=== PATIENT | female | born 1950 | race Caucasian/White ===

== ENCOUNTER → 2017-03-02 | Outpatient (CLI) | payer OTHER, MEDICARE ==
[~2017-03-02] MED LIST: AMLODIPINE PO; FAMO10CH; GLUCTAB7; MULTTAB PO; OMEGCAP2; VITAMIN B12; VITAMIN C; VITAMIN D; occuvite
[2017-03-02 12:27] LABS: BASO % 1.2 %; BASO ABS # 0.06 K/uL (0-0.2); COMPLETE YES; EOS % 0.8 %; HEMATOCRIT 44.5 % (37-47); IG% 0.4 %; LYMPH % 38.8 %; LYMPH ABS # 1.95 K/uL (1.2-3.4); MEAN CELL VOLUME 90.3 fL (80-100); MEAN CORPUSCULAR HEMOGLOBIN 30.4 pg (25-34); MEAN CORPUSCULAR HGB CONC 33.7 g/dl (32-36); MEAN PLATELET VOLUME 11.5 fL (7.4-10.4); MONO % 11.5 %; NEUT % 47.3 %; PLATELET COUNT 242 K/uL (130-400); RED BLOOD COUNT 4.93 M/uL (4.2-5.4); WHITE BLOOD COUNT 5.03 K/uL (4.8-10.8)
[2017-03-02 13:03] LABS: LYME DISEASE AB IGG NEG (NEG)
[2017-03-02 13:04] LABS: LYME DISEASE AB IGM NEG (NEG)
[2017-03-02 13:08] LABS: ALT/SGPT 90 U/L (12-78); AST/SGOT 62 U/L (15-37); BLOOD UREA NITROGEN 18 mg/dl (7-18); BUN/CREATININE RATIO 21.5 (10-20); CALCIUM 9.3 mg/dl (8.5-10.1); CARBON DIOXIDE 28 mmol/L (21-32); CHLORIDE 108 mmol/L (98-107); CREATININE 0.86 mg/dl (0.60-1.20); GLUCOSE 104 mg/dl (70-99); POTASSIUM 4.2 mmol/L (3.5-5.1); SODIUM 141 mmol/L (136-145)
[2017-03-02 13:18] LABS: ALB/GLOB RATIO 0.8 (0.9-2); ALKALINE PHOSPHATASE 109 U/L (45-117)
== END | disposition home or self-care (01) ==
LOC: C.LABPBG 09:53
PROVIDERS: ATTEND Physician Assistant
DX: R42 Dizziness and giddiness (principal); E55.9 Vitamin D deficiency, unspecified

== ENCOUNTER → 2017-10-12 | Outpatient (CLI) | payer OTHER, MEDICARE ==
--- NOTE | 2017-10-13 15:35 | MAMMOGRAPHY REPORT ---
BILATERAL DIGITAL SCREENING MAMMOGRAM TOMOSYNTHESIS WITH CAD: 10/12/2017 CLINICAL HISTORY: Routine screening. Patient has no complaints. TECHNIQUE: Breast tomosynthesis in addition to standard 2D mammography was performed. Current study was also evaluated with a Computer Aided Detection (CAD) system. COMPARISON: Comparison is made to exams dated: 08/06/2015 mammogram, 01/31/2015 mammogram, 07/31/2014 ma mmogram, 07/17/2014 mammogram, 07/04/2013 mammogram, and 12/13/2012 mammogram - [facility] enter. BREAST COMPOSITION: There are scattered areas of fibroglandular density in both breasts. FINDINGS: There is evidence of prior bilateral reduction mammoplasty. There are benign coarse calcif ications and benign oil cysts in the breasts. Stable nodular asymmetry in the medial right breast. N o suspicious mass, architectural distortion or cluster of microcalcifications is seen. IMPRESSION: ACR BI-RADS CATEGORY 1: NEGATIVE There is no mammographic evidence of malignancy. A 1 year screening mammogram is recommended. The pa tient will receive written notification of the results. Approximately 10% of breast cancers are not detected with mammography. A negative mammographic report should not delay biopsy if a clinically suggestive mass is present. Rebekah Cameron M.D. ay/:10/12/2017 16:33:57 Vice President Financial: Angeline CUELLO(Kiel)(Eduardo)(BD), [facility] letter sent: Normal 1/2 BI-RADS Code: ACR BI-RADS Category 1: Negative
== END | disposition home or self-care (01) ==
LOC: C.MAMM 13:29
PROVIDERS: ATTEND Family Medicine
DX: Z12.31 Encounter for screening mammogram for malignant neoplasm of breast (principal)

== ENCOUNTER 2018-02-25 18:14 | Emergency (ER) | payer OTHER, MEDICARE ==
[~2018-02-25] VITALS: Ht 162.6 cm; Wt 86.0 kg
[2018-02-25 18:22] VITALS: TEMP 36.9; Ht 162.6 cm; Wt 86.0 kg
--- NOTE | 2018-02-25 19:57 | DIAGNOSTIC IMAGING REPORT ---
CT OF THE HEAD WITHOUT CONTRAST CLINICAL HISTORY: Head injury. Facial contusions. COMPARISON STUDY: MRI of the brain April 17, 2011. CT DOSE: 846.80 mGy.cm TECHNIQUE: Helical axial images of the head were obtained without IV contrast. Automated exposure control was utilized for the study. A dose lowering technique was utilized adhering to the principles of ALARA. FINDINGS: Maxillofacial CT will be reported separately. No acute intracranial hemorrhage, midline shift or mass effect is present. Ventricular system is stable. Basilar cisterns are patent. There are no extra-axial collections. Johnson-white differentiation is maintained. There is no calvarial fracture. Deformity of the right lamina papyracea is better depicted on the maxillofacial CT. IMPRESSION: 1. No acute intracranial findings. 2. No calvarial fracture. 3. Deformity of the right lamina papyracea which is better depicted on the maxillofacial CT. Please see that report for further description. Electronically signed by: Jonh Bee M.D. 02/25/2018 7:56 PM Dictated Date/Time: 02/25/2018 7:52 PM
[2018-02-25] MEDS ORDERED: ALPH100C8 PO (20:02)
[2018-02-25] MEDS ORDERED: ASPI81TA28 PO (20:02)
[2018-02-25] MEDS ORDERED: HYZ/50125 PO (20:02)
[2018-02-25] MEDS ORDERED: CHOL1TAB42 PO (20:02)
[2018-02-25] MEDS ORDERED: ATOR-22 PO (20:02)
[2018-02-25] MEDS ORDERED: MULT1CAP53 PO (20:02)
[2018-02-25] MEDS ORDERED: CALC-51 PO (20:02)
[2018-02-25] MEDS ORDERED: COEN100C7 PO (20:02)
[2018-02-25] MEDS ORDERED: TURM1CAP4 PO (20:02)
[2018-02-25] MEDS ORDERED: RANI150T85 PO (20:02)
--- NOTE | 2018-02-25 20:05 | DIAGNOSTIC IMAGING REPORT ---
MAXILLOFACIAL CT WITHOUT CONTRAST CLINICAL HISTORY: Head injury, facial contusions. COMPARISON STUDY: MRI of the brain April 17, 2011. TECHNIQUE: A maxillofacial CT was performed without IV contrast. Coronal and sagittal reformats were viewed. A dose lowering technique was utilized adhering to the principles of ALARA. FINDINGS: Small right infraorbital contusion is noted. There is calcific material and mucosal thickening of the right maxillary sinus which is likely chronic. The globes are intact. There is no retrobulbar hematoma. The orbital floors are intact. There is a comminuted, mildly displaced fracture of the right lamina papyracea with a small amount of orbital fat herniating through the defect. Fractures age indeterminate. No additional fractures are identified on this examination. Alignment of the temporomandibular joints is anatomic. Slight deformity of the bilateral nasal bones is likely chronic. IMPRESSION: 1. Mildly displaced fracture of the right lamina papyracea with a small amount of orbital fat herniating through the defect. This fracture is age indeterminate and may be acute. 2. Right infraorbital contusion. Globes intact with no retrobulbar hematoma. 3. Slight deformity bilateral nasal bones which is likely chronic. 4. Calcific material and mucosal thickening within the right maxillary sinus which suggests chronic sinusitis. Electronically signed by: Jonh Bee M.D. 02/25/2018 8:04 PM Dictated Date/Time: 02/25/2018 7:56 PM
--- NOTE | 2018-02-25 20:10 | EMERGENCY ROOM VISIT NOTE ---
ED Visit Note First contact with patient: 18:32 The patient was seen and examined with Abril Colón PA-C. I agree with the history, physical and findings. Please see the note for disposition and details.
--- NOTE | 2018-02-25 20:37 | EMERGENCY ROOM VISIT NOTE ---
History First contact with patient: 18:32 Chief Complaint: REFERRED BY DOCTOR Stated Complaint: PATIENT FELL AND HIT FACE REFERRED BY DR TO GET CT History of Present Illness The patient is a 67 year old female who presents to the Emergency Room with complaints of a fall and facial injury which occurred 2 days ago. The patient states that she tripped over a mini trampoline and fell, striking her face on a metal bar. She had pain when the injury occurred but states the pain has improved since then. She does report that she has had some pressure in her sinuses and mucousy discharge from the nose. She has been applying ice to the area with some relief of pain. She takes a daily baby aspirin but no other anticoagulants. She states that she did not lose consciousness when the injury occurred. She denies headache, lightheadedness, vision changes, nausea or vomiting. She was seen by a provider at her primary care provider's office and sent here for further evaluation. Review of Systems A complete 10 point review of systems was reviewed with the patient with pertinent positives and negatives as per history of present illness. All else were negative. Past Medical/Surgical History Medical Problems: (1) Hyperlipidemia (2) Hypertension Social History Smoking Status: Never Smoker Housing Status: lives with family Current/Historical Medications Scheduled Alpha-Lipoic Acid (Thioctic Ac (Alpha Lipoic Acid), 1 TAB PO DAILY Aspirin (Aspirin Ec), 81 MG PO 2XWK Atorvastatin (Lipitor), 20 MG PO DAILY Calcium Carbonate-Vitamin D (Calcium), 1 TAB PO BID Cholecalciferol (Vitamin D), 5,000 UNITS PO DAILY Coenzyme Q10 (Ubidecarenone) (Coq10), 1 CAP PO DAILY Hctz/Losartan (Hyzaar 12.5MG/50MG), 1 TAB PO DAILY Multiple Vitamins W/ Minerals (Macular Health Formula), 1 CAP PO DAILY Ranitidine (Zantac), 150 MG PO BID Turmeric (Curcuma Longa) (Turmeric), 1 CAP PO DAILY Physical Exam Vital Signs Date Time Temp Pulse Resp B/P (MAP) Pulse Ox O2 Delivery O2 Flow Rate FiO2 02/25/18 21:17 74 18 141/78 98 Room Air 02/25/18 18:22 36.9 72 18 148/81 95 Room Air Physical Exam VITALS: Vitals are noted on the nurse's note and reviewed by myself. Vital signs stable. GENERAL: This is a 67-year-old female, in no acute distress, nondiaphoretic, well-developed well-nourished. SKIN: No lacerations. HEAD: Normocephalic atraumatic. EARS: External auditory canals clear, tympanic membranes pearly cannon without erythema or effusion bilaterally. No hemotympanum. EYES: There is infraorbital ecchymosis bilaterally, right greater than left. Pupils equal round and reactive to light and accommodation. Right eye does deviate laterally. No subconjunctival hemorrhage or hyphema. Extraocular movements intact and nonpainful. NOSE: Patent, turbinates without inflammation or discharge. NECK: Cervical spine is nontender. HEART: Regular rate and rhythm without murmurs gallops or rubs. LUNGS: Clear to auscultation bilaterally without wheezes, rales or rhonchi. MUSCULOSKELETAL: Strength 5/5 throughout. NEURO: Patient was alert and oriented to person place and time. Medical Decision & Procedures ER Provider Diagnostic Interpretation: CT OF THE HEAD WITHOUT CONTRAST IMPRESSION: 1. No acute intracranial findings. 2. No calvarial fracture. 3. Deformity of the right lamina papyracea which is better depicted on the maxillofacial CT. Please see that report for further description. MAXILLOFACIAL CT WITHOUT CONTRAST FINDINGS: Small right infraorbital contusion is noted. There is calcific material and mucosal thickening of the right maxillary sinus which is likely chronic. The globes are intact. There is no retrobulbar hematoma. The orbital floors are intact. There is a comminuted, mildly displaced fracture of the right lamina papyracea with a small amount of orbital fat herniating through the defect. Fractures age indeterminate. No additional fractures are identified on this examination. Alignment of the temporomandibular joints is anatomic. Slight deformity of the bilateral nasal bones is likely chronic. IMPRESSION: 1. Mildly displaced fracture of the right lamina papyracea with a small amount of orbital fat herniating through the defect. This fracture is age indeterminate and may be acute. 2. Right infraorbital contusion. Globes intact with no retrobulbar hematoma. 3. Slight deformity bilateral nasal bones which is likely chronic. 4. Calcific material and mucosal thickening within the right maxillary sinus which suggests chronic sinusitis. Medications Administered Medications (Trade) Dose Ordered Sig/Sumeet Route Start Time Stop Time Status Last Admin Dose Admin Amoxicillin/ Clavulanate Potassium (Augmentin 875MG Home Pack) 1 homepack UD ONCE PO 02/25/18 20:45 02/25/18 20:46 DC 02/25/18 21:13 1 HOMEPACK Medical Decision Differential diagnosis includes facial bone fracture, orbital floor fracture, nasal bone fracture, intracranial bleeding, concussion, among others. The patient was evaluated as above. CT of the head and facial bones were performed and read by radiology as above. Patient does have a fracture noted to the right lamina papyracea. The case was discussed with Dr. Dasilva of maxillofacial surgery; he recommends placing the patient on antibiotics and following up as needed. The patient was advised not to blow her nose. She will be placed on Augmentin. She verbalized understanding of my assessment and treatment plan and was discharged home in good condition. The patient was independently evaluated by Dr. Mathias, ED attending physician, who agreed with my assessment and treatment plan. Head Trauma GCS Score: 15 Medication Reconcilliation Current Medication List: was personally reviewed by me Blood Pressure Screening Patient's blood pressure: Elevated blood pressure Blood pressure disposition: Elevated BP felt to be situational Impression Primary Impression: Lamina papyracea fracture Departure Information Dispostion Home / Self-Care Condition GOOD Referrals Gale Mary DO (PCP) Khanh Dasilva D.M.D. Patient Instructions [facility] Additional Instructions You were treated today for a closed head injury and facial injury. Your CT scan did show a fracture of 1 of the bones around your eye. You were prescribed Augmentin to be taken twice daily as prescribed. This is an antibiotic. All antibiotics have the potential to cause diarrhea. Stop this medication and contact a medical provider if you were to develop any significant adverse side effects including: wheezing, shortness of breath, passing out, vomiting, or a diffuse rash. Always take antibiotics as directed and COMPLETE the ENTIRE course regardless of the improvement of your symptoms. For pain control, you can use the following [id number] medicines (if >12 yo): - Regular strength (325mg/tab) Tylenol (acetaminophen) 2 tabs every 4-6 hours as needed. Do not exceed 12 tablets in a 24 hour period. Avoid taking more than 4 grams (4000 mg) of Tylenol per day. This includes any other sources of acetaminophen you may take on a regular basis. - Regular strength (200 mg/tab) Advil (ibuprofen) 1-2 tabs every 4-6 hours as needed. Do not exceed a dose of 3200 mg per day. You may follow-up with maxillofacial surgery (Dr. Dasilva) for any increasing facial pain or double vision. Return to the emergency department if you have any worsening or new/concerning symptoms. Problem Qualifiers Primary Impression: Lamina papyracea fracture Encounter type: initial encounter Fracture type: closed Qualified Codes: S02.19XA - Other fracture of base of skull, initial encounter for closed fracture
[2018-02-25] MEDS ORDERED: AMOXICIL/CLAVU 875MG HOME PACK PO ONE (20:45)
[2018-02-25 21:17] VITALS: BP 141/78; PULSE 74; O2SAT 98
== END 2018-02-25 21:16 | disposition home or self-care (01) ==
LOC: C.EDB 18:16 → C.EDD 21:16
DX: S02.31XA Fracture of orbital floor, right side, initial encounter for closed fracture (principal); R40.2412 Glasgow coma scale score 13-15, at arrival to emergency department; W01.198A Fall on same level from slipping, tripping and stumbling with subsequent striking against other object, initial encounter; Z79.82 Long term (current) use of aspirin; I10 Essential (primary) hypertension; E78.5 Hyperlipidemia, unspecified

== ENCOUNTER 2019-10-02 19:41 | Observation (INO) ==
[2019-10-02 20:25] LABS: Basophils # (auto) 0.05 K/uL (0-0.2); Basophils % (auto) 0.7 %; Eosinophils # (auto) 0.05 K/uL (0-0.5); Eosinophils % (auto) 0.7 %; Hematocrit (blood only) 41.4 % (37-47); Hemoglobin 13.8 g/dL (12.0-16.0); Immature Granulocytes # (auto) 0.03 K/uL (0.00-0.02); Immature Granulocytes % (auto) 0.4 %; Lymphocytes % (auto) 35.3 %; Mean Corpuscular Hemoglobin 30.7 pg (25-34); Mean Corpuscular Hgb Conc 33.3 g/dL (32-36); Mean Platelet Volume 11.1 fL (7.4-10.4); Monocytes # (auto) 0.71 K/uL (0.11-0.59); Monocytes % (auto) 9.6 %; Neutrophils # (auto) 3.92 K/uL (1.4-6.5); Neutrophils % (auto) 53.3 %; Platelet Count 233 K/uL (130-400); RDW Standard Deviation 44.2 fL (36.4-46.3); White Blood Count 7.36 K/uL (4.8-10.8)
[2019-10-02 20:46] LABS: Albumin Globulin Ratio 0.9 (0.9-2); Albumin Level 3.4 gm/dl (3.4-5.0); BUN Creatinine Ratio 14.6 (10-20); Bilirubin,Total 0.4 mg/dl (0.2-1); Calcium 9.3 mg/dl (8.5-10.1); Creatinine Clr Calc Pharmacy 54.4 ml/min; Est GFR (African American) 64.1; Est GFR (Non-African American) 55.3; Globulin 3.9 gm/dl (2.5-4.0); Potassium 3.9 mmol/L (3.5-5.1); Total Protein 7.3 gm/dl (6.4-8.2)
[2019-10-02] MEDS ORDERED: ASPIRIN CHEW 324 MG PO STA (21:46)
--- NOTE | 2019-10-02 21:54 | Emergency Department Note ---
Entered by Ester Loyd acting as a scribe for History of Present Illness General Chief complaint: Dizziness Stated complaint: PRESSURE BACK OF HEAD,DIZZINESS,PRESSURE IN NECK Time Seen by Provider: 10/02/19 21:36 Source: patient Mode of arrival: ambulatory Limitations: no limitations History of Present Illness Onset (ago): day(s) 3 Location: head Radiation: non-radiation Pain Consistency: + constant Maximum Pain Intensity: 3 Current Pain Intensity: 3 Relieved By: + none Exacerbated By: + none Associated symptoms: + headaches; no chest pain and no shortness of breath Treatments prior to arrival: none The patient is a 69 year old female who presents to the ED with complaints of dizziness. She states she has experienced pressure in the back of her head and neck as well as dizziness during exertion, like when she goes for a walk. She thought her symptoms were from her Hydrochlorothiazide, so she went to see her doctor who did an EKG and referred her here to the ED as her EKG showed a 2nd degree block. She denies any chest pain or shortness of breath. Home Medications Home Medications Medication Instructions Recorded Confirmed Type atorvastatin 10 mg tablet 10 mg PO DAILY #30 tab 02/04/19 10/03/19 History calcium carb-Ca gluc 500 mg 1 tab PO BID tab 02/04/19 10/03/19 History calcium-magnesium ox-Mg gluc 250 mg tablet cholecalciferol (vitamin D3) 125 5,000 units PO DAILY tab 02/04/19 10/03/19 History mcg (5,000 unit) tablet coenzyme Q10 100 mg capsule 100 mg PO DAILY cap 02/04/19 10/03/19 History lutein 10 mg tablet 10 mg PO BID tab 02/04/19 10/03/19 History omega-3 fatty acids 1,000 mg 1,000 mg PO AMPM 02/04/19 10/03/19 History capsule omeprazole 20 mg tablet,delayed 20 mg PO DAILY 02/04/19 10/03/19 History release conjugated estrogens 0.625 mg/gram 0.3125 mg PV DAILY #30 gm 06/02/19 10/03/19 Rx vaginal cream hydrochlorothiazide 12.5 mg tablet 12.5 mg PO DAILY #90 tab 09/27/19 10/03/19 Rx losartan 25 mg tablet 25 mg PO DAILY #90 tab 09/27/19 10/03/19 Rx Allergies Allergy/AdvReac Type Severity Reaction Status Date / Time No Known Drug Allergies Allergy Verified 10/02/19 17:26 Past Med/Surg History Medical History Abdominal pain, epigastric Arthritis (Chronic) Breast pain (Resolved) Cellulitis (Resolved) Dermatofibroma (Chronic) Diverticulosis of colon (Chronic) Elevated liver enzymes (Chronic) Endometriosis (Resolved) FH: total abdominal hysterectomy and bilateral salpingo-oophorectomy GERD without esophagitis (Chronic) History of abnormal electrocardiography (Chronic) History of actinic keratosis (Chronic) History of carotid stenosis History of contact dermatitis (Resolved) History of diverticulitis of colon (Resolved) History of dysplastic nevus (Chronic) History of ecchymosis (Chronic) History of hypertrophy of breast (Chronic) History of melanoma in situ (Chronic) History of rosacea (Chronic) History of swelling of feet (Resolved) History of uterine leiomyoma (Resolved) History of vaginal delivery X3 History of vertigo (Chronic) Hypertrophy of breast Hyponatremia (Chronic) Left shoulder pain (Resolved) Macular degeneration (Chronic) Malignant melanoma of lower limb (Chronic) Need for hepatitis C screening test (Inactive) Osteopenia (Chronic) Paroxysmal supraventricular tachycardia (Resolved) Parvovirus B19 infection (Resolved) Urinary incontinence in female (Chronic) Uterine leiomyoma Vitamin D deficiency (Chronic) Vulvar ulceration (Resolved) Surgical History H/O cardiac catheterization History of dental surgery WISDOM TEETH History of excision of lesion EXCISION OF LESION,LEGS, MALIGNANT/ 2.1 TO 3CM. History of hemorrhoidectomy History of laparoscopy History of placement of ear tubes EAR PRESSURE EQUALIZATION TUBE ONSET; SEP 2015/ LEFT EAR. History of tonsillectomy History of total abdominal hysterectomy History of tubal ligation Family History Uncle Myocardial infarction Aunt Myocardial infarction Mother Myocardial infarction Brother Myocardial infarction Coronary arteriosclerosis Father Myocardial infarction Coronary arteriosclerosis Other FH: total abdominal hysterectomy and bilateral salpingo-oophorectomy Denies family history of Ovarian cancer Prostate cancer Breast cancer Colorectal cancer Social History Preferred Language: Micronesian Communication Ability: Effective Visual Impairment: No Limitations Hearing Ability: Normal Beliefs That Will Affect Care: None marital status: marital status details: THREE CHILDREN Current Living Situation: Spouse current occupational status: retired Feels Safe at Home: Yes Smoking Status: Never smoker Hx Alcohol Use: No Hx Substance Use: No Dental Care, Regularly: Yes Physical Activity Frequency: 3-4 Times per Week Seatbelt Use: always Sunscreen Use: Yes Review of Systems See HPI for pertinent positives & negatives. and A total of 10 systems reviewed and were otherwise negative Physical Exam Vital Signs Vital Signs - 24 hr 10/02/19 19:52 10/02/19 21:14 10/02/19 21:16 Temperature 36.6 C Temperature Source Oral Pulse Rate - Lying 66 Pulse Rate - Sitting 71 Pulse Rate - Standing 77 Pulse Rate 63 63 Respiratory Rate 20 18 Respiratory Effort / Characteristics Non-Labored Spontaneous Respiratory Depth Normal Blood Pressure - Lying 134/86 Blood Pressure - Sitting 155/87 H Blood Pressure- Standing 152/94 H Blood Pressure 153/81 H 152/94 H Blood Pressure Mean 105 130 Pulse Oximetry 95 Oxygen Delivery Method Room Air Room Air Sepsis Action Taken by Nursing No Action Required 10/02/19 21:17 10/02/19 21:20 10/02/19 21:30 Temperature Temperature Source Pulse Rate - Lying Pulse Rate - Sitting Pulse Rate - Standing Pulse Rate 65 59 L 68 Respiratory Rate 21 19 19 Respiratory Effort / Characteristics Respiratory Depth Blood Pressure - Lying Blood Pressure - Sitting Blood Pressure- Standing Blood Pressure Blood Pressure Mean Pulse Oximetry 95 Oxygen Delivery Method Room Air Sepsis Action Taken by Nursing 10/02/19 21:40 10/02/19 21:50 10/02/19 22:33 Temperature Temperature Source Pulse Rate - Lying Pulse Rate - Sitting Pulse Rate - Standing Pulse Rate 62 62 59 L Respiratory Rate 23 19 16 Respiratory Effort / Characteristics Respiratory Depth Blood Pressure - Lying Blood Pressure - Sitting Blood Pressure- Standing Blood Pressure 158/85 H Blood Pressure Mean 92 Pulse Oximetry Oxygen Delivery Method Sepsis Action Taken by Nursing GENERAL: Patient is awake alert in no acute distress patient is resting comfortably and showing no signs of anxiety EYES: The conjunctivae are clear. The pupils are round and reactive. EARS, NOSE, MOUTH AND THROAT: The nose is without any evidence of any deformity. Mucous membranes are moist. Tongue is midline. NECK: The neck is nontender and supple. RESPIRATORY: Normal respiratory effort is noted there is no evidence of wheezing rhonchi or rales CARDIOVASCULAR: Ectopy was noted to auscultation. No definite murmur was noted. GASTROINTESTINAL: The abdomen is soft. Abdomen is nontender. MUSCULOSKELETAL/EXTREMITIES: There is no evidence of gross deformity full range of motion is noted in the hips and shoulders. SKIN: There is no obvious evidence of any rash. There are no petechiae, pallor or cyanosis noted. NEUROLOGIC: Patient is awake alert and oriented x3 strength is symmetric patellar reflexes are 2+ bilaterally Course Course 214: The patient was evaluated in room C8 and a complete history and physical were performed. 2300: I reevaluated the patient. She is resting comfortably. I discussed her results and my recommendation she remain in the hospital for further evaluation and management and she is agreeable with the plan. 2345: I discussed the patients case with Dr. Jalloh, [facility] Hospitalist. The patient will be further evaluated. Administered Medications Discontinued Medications Aspirin (Aspirin) 324 mg PO NOW STA Stop: 10/02/19 21:47 Last Admin: 10/02/19 21:53 Dose: 324 mg Documented by: [id number] Medical Decision Making Differential Diagnosis Differential Diagnosis includes but is not limited to dehydration, stroke, anemia, hypoglycemia, hyponatremia, hypernatremia, urinary tract infection, pneumonia, bronchitis, sepsis, gastroenteritis, additional abdominal pathology, metabolic abnormalities and infections. Medical Records Attestation: I reviewed the patient's medical records. Home Medications Current Medication List: was personally reviewed by me Laboratory Data Attestation: I reviewed the patient's lab results. Result diagrams: 10/02/19 20:05 10/02/19 20:05 Lab Results 10/02/19 10/02/19 10/02/19 Range/Units 20:05 20:05 20:05 WBC 7.36 (4.8-10.8) K/uL RBC 4.50 (4.2-5.4) M/uL Hgb 13.8 (12.0-16.0) g/dL Hct 41.4 (37-47) % MCV 92.0 (80-100) fL MCH 30.7 (25-34) pg MCHC 33.3 (32-36) g/dL RDW Std Deviation 44.2 (36.4-46.3) fL RDW Coeff of Johnnie 13.0 (11.5-14.5) % Plt Count 233 (130-400) K/uL MPV 11.1 H (7.4-10.4) fL Immature Gran % (Auto) 0.4 % Neut % (Auto) 53.3 % Lymph % (Auto) 35.3 % [place] % (Auto) 9.6 % Eos % (Auto) 0.7 % Baso % (Auto) 0.7 % Immature Gran # (Auto) 0.03 H (0.00-0.02) K/uL Neut # (Auto) 3.92 (1.4-6.5) K/uL Lymph # (Auto) 2.60 (1.2-3.4) K/uL [place] # (Auto) 0.71 H (0.11-0.59) K/uL Eos # (Auto) 0.05 (0-0.5) K/uL Baso # (Auto) 0.05 (0-0.2) K/uL Sodium 139 (136-145) mmol/L Potassium 3.9 (3.5-5.1) mmol/L Chloride 108 H (98-107) mmol/L Carbon Dioxide 26 (21-32) mmol/L Anion Gap 5.0 (3-11) BUN 15 (7-18) mg/dl Creatinine 1.02 (0.6-1.2) mg/dl Est Cr Clr Drug Dosing 54.4 ml/min Est GFR ( Amer) 64.1 Est GFR (Non-Af Amer) 55.3 BUN/Creatinine Ratio 14.6 (10-20) Glucose 132 H (70-99) mg/dl Calcium 9.3 (8.5-10.1) mg/dl Total Bilirubin 0.4 (0.2-1) mg/dl AST 32 (15-37) U/L ALT 44 (12-78) U/L Alkaline Phosphatase 88 (45-117) U/L Troponin I < 0.015 (0-0.045) ng/ml Total Protein 7.3 (6.4-8.2) gm/dl Albumin 3.4 (3.4-5.0) gm/dl Globulin 3.9 (2.5-4.0) gm/dl Albumin/Globulin Ratio 0.9 (0.9-2) Specimen Hemolysis Urine Color Urine Appearance (Clear) Urine pH (4.5-7.5) Ur Specific [place] (1.000-1.030) Urine Protein (Negative) Urine Glucose (UA) (Negative) Urine Ketones (Negative) Urine Blood (Negative) Urine Nitrite (Negative) Urine Bilirubin (Negative) Urine Urobilinogen (Negative) Ur Leukocyte Esterase (Negative) Lyme Disease IgG Ab (Negative) Lyme Disease IgM Ab (Negative) 10/02/19 10/02/19 Range/Units 20:05 22:00 WBC (4.8-10.8) K/uL RBC (4.2-5.4) M/uL Hgb (12.0-16.0) g/dL Hct (37-47) % MCV (80-100) fL MCH (25-34) pg MCHC (32-36) g/dL RDW Std Deviation (36.4-46.3) fL RDW Coeff of Johnnie (11.5-14.5) % Plt Count (130-400) K/uL MPV (7.4-10.4) fL Immature Gran % (Auto) % Neut % (Auto) % Lymph % (Auto) % [place] % (Auto) % Eos % (Auto) % Baso % (Auto) % Immature Gran # (Auto) (0.00-0.02) K/uL Neut # (Auto) (1.4-6.5) K/uL Lymph # (Auto) (1.2-3.4) K/uL [place] # (Auto) (0.11-0.59) K/uL Eos # (Auto) (0-0.5) K/uL Baso # (Auto) (0-0.2) K/uL Sodium (136-145) mmol/L Potassium (3.5-5.1) mmol/L Chloride (98-107) mmol/L Carbon Dioxide (21-32) mmol/L Anion Gap (3-11) BUN (7-18) mg/dl Creatinine (0.6-1.2) mg/dl Est Cr Clr Drug Dosing ml/min Est GFR ( Amer) Est GFR (Non-Af Amer) BUN/Creatinine Ratio (10-20) Glucose (70-99) mg/dl Calcium (8.5-10.1) mg/dl Total Bilirubin (0.2-1) mg/dl AST (15-37) U/L ALT (12-78) U/L Alkaline Phosphatase (45-117) U/L Troponin I (0-0.045) ng/ml Total Protein (6.4-8.2) gm/dl Albumin (3.4-5.0) gm/dl Globulin (2.5-4.0) gm/dl Albumin/Globulin Ratio (0.9-2) Specimen Hemolysis Urine Color Yellow Urine Appearance Clear (Clear) Urine pH 6.0 (4.5-7.5) Ur Specific [place] 1.016 (1.000-1.030) Urine Protein Negative (Negative) Urine Glucose (UA) Negative (Negative) Urine Ketones Negative (Negative) Urine Blood Negative (Negative) Urine Nitrite Negative (Negative) Urine Bilirubin Negative (Negative) Urine Urobilinogen Negative (Negative) Ur Leukocyte Esterase Negative (Negative) Lyme Disease IgG Ab Negative (Negative) Lyme Disease IgM Ab Negative (Negative) Imaging Data Radiologist's Impression: Radiology results as stated below per my review and the radiologist's interpretation: XR chest 1V portable CLINICAL HISTORY: palpitations COMPARISON STUDY: Chest radiograph January 02, 2013. FINDINGS: Lung volumes are normal. Lungs are clear. There is no pneumothorax or pleural effusion. Mild to moderate cardiomegaly is noted. Mediastinal contours are normal. There is no evidence for pulmonary edema. IMPRESSION: No acute cardiopulmonary findings. Mild to moderate cardiomegaly. ACT 112: Negative or not required by law. Electronically signed by: Jonh Bee M.D. 10/02/2019 10:02 PM ECG Data Attestation: I personally reviewed and interpreted this ECG as follows: Indication: + other (dizziness) Rate (beats per minute): 77 Rhythm: + sinus rhythm ECG Findings: + PVCs and + Other (No acute ST segments) Comparison ECG Date: from (12/23/2012) Change: no significant change Blood Pressure Blood Pressure Findings: Elevated blood pressure Blood Pressure Disposition: further management by hospitalist MONICO Das The patient is a 69-year-old female who presented to the emergency department at the request of her primary care physician. The patient has been having dizziness symptoms. She also started having some degree of chest discomfort. She has no chest discomfort at this time but when she went to see her primary care physician she was noted to have an abnormal EKG with the possibility of a second-degree AV block. I was unable to obtain the EKG that the patient had ear lier today but at this time she does not have a block rather she has sinus rhythm with frequent PVCs. I discussed the patient's laboratory and radiographic studies with her. She was reevaluated multiple times. At this time she has no ongoing symptoms but she is scheduled for a cardiac work-up. Leeann collins the patient's findings earlier in the day it is possible that her symptoms could be related to dysrhythmia. For this reason I discussed her case with the on-call [facility] hospitalist group. They have agreed to evaluate the patient in the emergency department for further management disposition. Impression & Plan Neck pain, Chest pain, Abnormal EKG Discharge Plan Visit Data *Final* Discharge Date/Time: 10/03/19 01:06 Chief Complaint: Dizziness Stated Complaint: PRESSURE BACK OF HEAD,DIZZINESS,PRESSURE IN NECK ED Provider: Carlin Gonzalez Discharge Problem: Neck pain, Chest pain, Abnormal EKG Patient Disposition: Admitted As Inpatient Discharge Instructions Interventions: ED Discharge Assessment Last Done: 10/03/19 01:06 The breeibe's documentation has been prepared under my direction and personally reviewed by me in its entirety. I confirm that the note above accurately reflects all work, treatment, procedures, and medical decision making performed by me.
--- NOTE | 2019-10-02 22:03 | XRay Report ---
XR chest 1V portable CLINICAL HISTORY: palpitations COMPARISON STUDY: Chest radiograph January 02, 2013. FINDINGS: Lung volumes are normal. Lungs are clear. There is no pneumothorax or pleural effusion. Mil d to moderate cardiomegaly is noted. Mediastinal contours are normal. There is no evidence for pulmon erasto edema. IMPRESSION: No acute cardiopulmonary findings. Mild to moderate cardiomegaly. ACT 112: Negative or not required by law. Electronically signed by: Jonh Bee M.D. 10/02/2019 10:02 PM
[2019-10-02 22:10] LABS: Appearance Urine Clear (Clear); Bilirubin Urine Negative (Negative); Blood Urine Negative (Negative); Color Urine Yellow; Glucose Urine UA Negative (Negative); Ketones Urine Negative (Negative); Leukocyte Esterase Urine Negative (Negative); Nitrite Urine Negative (Negative); Protein Urine Negative (Negative); Specific Gravity Urine 1.016 (1.000-1.030); Urobilinogen Urine Negative (Negative)
[2019-10-02 22:30] LABS: Lyme Ab IgG w/WB Rflx Negative (Negative); Lyme Ab IgM w/WB Rflx Negative (Negative)
[2019-10-02] MEDS ORDERED: LORazepam 1 MG/2 ML VIAL IV STA (23:37)
[2019-10-03] MEDS ORDERED: ACETAMINOPHEN 325 MG TAB PO PRN (01:27)
[2019-10-03] MEDS ORDERED: MAGNESIUM HYDROXIDE SUSP 30 ML UDC PO PRN (01:27)
[2019-10-03] MEDS ORDERED: ONDANSETRON INJ 2 MG/ML 2 ML VIAL IV PRN (01:27)
[2019-10-03] MEDS ORDERED: ALUMINUM/MAGNESIUM SUSP 30 ML UDC PO PRN (01:27)
--- NOTE | 2019-10-03 06:09 | History & Physical Report ---
Date of Service October 03, 2019 Assessment & Plan (1) Neck pain: The patient will be admitted to telemetry for serial cardiac enzymes, serial EKG's, cardiac rhythm monitoring and a 2-D echocardiogram with Dopplers. The patient reports symptoms of exertional neck pressure and discomfort on the back of her neck when she has been walking, but she still able to continue to walk and finish her her walk. She has a history of reported tachycardia per Dr. Canales. She reportedly had an EKG performed by her PCP earlier in the day which showed second-degree heart block Mobitz type II. We will leave any adjustment to medications up to Dr. Canales, who will be consulted. Present on Admission?: Yes (2) Chest pain: See above Present on Admission?: Yes (3) Paroxysmal supraventricular tachycardia: See above Present on Admission?: Yes (4) Abnormal EKG: Patient had an EKG in the outpatient setting earlier today, which her PCP interpreted as showing second-degree heart block, Mobitz type II, but we have no access to that EKG at this time. Present on Admission?: Yes (5) Hypertension: Continue losartan, hold HCTZ for now. Present on Admission?: Yes (6) Hyperlipidemia: Continue atorvastatin 10 mg daily Present on Admission?: Yes (7) Mixed incontinence urge and stress: Continue conjugated estrogens vaginal cream Present on Admission?: Yes (8) GERD without esophagitis: Continue omeprazole 20 mg p.o. daily. Present on Admission?: Yes (9) Macular degeneration: Continue lutein Present on Admission?: Yes (10) Moderate obstructive sleep apnea: Patient reports that she does use CPAP at home, but think she will be able do without it during this admission Present on Admission?: Yes History of Present Illness Chief Complaint: The patient presents to the emergency department with complaint of pressure in her neck anteriorly and pressure in the back of her head is been occurring more frequently when she is walking outside. She reports that when she gets the symptoms she continues to walk and symptoms do not appear to intensify but they also do not go away. Primary Care Provider: Gale Mary, DO Allergies Allergy/AdvReac Type Severity Reaction Status Date / Time No Known Drug Allergies Allergy Verified 10/02/19 17:26 Home Medications Home Medications Medication Instructions Recorded Confirmed Type atorvastatin 10 mg tablet 10 mg PO DAILY #30 tab 02/04/19 10/03/19 History calcium carb-Ca gluc 500 mg 1 tab PO BID tab 02/04/19 10/03/19 History calcium-magnesium ox-Mg gluc 250 mg tablet cholecalciferol (vitamin D3) 125 5,000 units PO DAILY tab 02/04/19 10/03/19 History mcg (5,000 unit) tablet coenzyme Q10 100 mg capsule 100 mg PO DAILY cap 02/04/19 10/03/19 History lutein 10 mg tablet 10 mg PO BID tab 02/04/19 10/03/19 History omega-3 fatty acids 1,000 mg 1,000 mg PO AMPM 02/04/19 10/03/19 History capsule omeprazole 20 mg tablet,delayed 20 mg PO DAILY 02/04/19 10/03/19 History release conjugated estrogens 0.625 mg/gram 0.3125 mg PV DAILY #30 gm 06/02/19 10/03/19 Rx vaginal cream hydrochlorothiazide 12.5 mg tablet 12.5 mg PO DAILY #90 tab 09/27/19 10/03/19 Rx losartan 25 mg tablet 25 mg PO DAILY #90 tab 09/27/19 10/03/19 Rx Past Med/Surg History Medical History Abdominal pain, epigastric Arthritis (Chronic) Breast pain (Resolved) Cellulitis (Resolved) Dermatofibroma (Chronic) Diverticulosis of colon (Chronic) Elevated liver enzymes (Chronic) Endometriosis (Resolved) FH: total abdominal hysterectomy and bilateral salpingo-oophorectomy GERD without esophagitis (Chronic) History of abnormal electrocardiography (Chronic) History of actinic keratosis (Chronic) History of carotid stenosis History of contact dermatitis (Resolved) History of diverticulitis of colon (Resolved) History of dysplastic nevus (Chronic) History of ecchymosis (Chronic) History of hypertrophy of breast (Chronic) History of melanoma in situ (Chronic) History of rosacea (Chronic) History of swelling of feet (Resolved) History of uterine leiomyoma (Resolved) History of vaginal delivery X3 History of vertigo (Chronic) Hypertrophy of breast Hyponatremia (Chronic) Left shoulder pain (Resolved) Macular degeneration (Chronic) Malignant melanoma of lower limb (Chronic) Need for hepatitis C screening test (Inactive) Osteopenia (Chronic) Paroxysmal supraventricular tachycardia (Resolved) Parvovirus B19 infection (Resolved) Urinary incontinence in female (Chronic) Uterine leiomyoma Vitamin D deficiency (Chronic) Vulvar ulceration (Resolved) Surgical History H/O cardiac catheterization History of dental surgery WISDOM TEETH History of excision of lesion EXCISION OF LESION,LEGS, MALIGNANT/ 2.1 TO 3CM. History of hemorrhoidectomy History of laparoscopy History of placement of ear tubes EAR PRESSURE EQUALIZATION TUBE ONSET; SEP 2015/ LEFT EAR. History of tonsillectomy History of total abdominal hysterectomy History of tubal ligation Family History Uncle Myocardial infarction Aunt Myocardial infarction Mother Myocardial infarction Brother Myocardial infarction Coronary arteriosclerosis Father Myocardial infarction Coronary arteriosclerosis Other FH: total abdominal hysterectomy and bilateral salpingo-oophorectomy Denies family history of Ovarian cancer Prostate cancer Breast cancer Colorectal cancer Social History Preferred Language: Turkish Communication Ability: Effective Visual Impairment: No Limitations Hearing Ability: Normal Beliefs That Will Affect Care: None marital status: marital status details: THREE CHILDREN Current Living Situation: Spouse current occupational status: retired Feels Safe at Home: Yes Smoking Status: Never smoker Hx Alcohol Use: No Hx Substance Use: No Dental Care, Regularly: Yes Physical Activity Frequency: 3-4 Times per Week Seatbelt Use: always Sunscreen Use: Yes Review of Systems Review of Systems: The patient denies chest pain, palpitations, shortness of breath, dyspnea on exertion, cough, lower extremity swelling, sore throat, fevers, chills, sweats, nausea, vomiting, diarrhea , constipation, abdominal pain, pelvic pain, blood in urine or stool, dysuria, urinary frequency or urgency, lightheadedness, dizziness, headache, memory loss, loss of consciousness, rash, abnormal bruising or bleeding, imbalance, focal or generalized weakness, numbness or tingling in arms or legs, generalized arthralgias or myalgias, or night sweats. The review of systems is otherwise negative other than for that already noted above, and at least 10 systems have been reviewed. Physical Exam Physical Exam: The patient is awake, alert and oriented 3, well developed and well nourished, normocephalic and atraumatic, lying in bed and in no acute distress. HEENT--PERRL, EOMI, mucous membranes and oropharynx dry. Neck--supple. No JVD. No bruits. Thyroid normal, trachea midline, no adenopathy. Heart--normal S1 and S2. No murmurs, rubs or gallops. Lungs--clear bilaterally, no respiratory distress, no accessory muscle use. Abdomen--normal bowel sounds and soft. Nontender. Nondistended, no hernias or masses, no organomegaly. Extremities--no cyanosis or clubbing. No edema. There are good distal pulses b/l. Dermatologic--normal skin turgor, normal color, no abnormal lymph nodes, no rash. Neurologic--cranial nerves II through XII grossly intact. Rheumatologic--normal range of motion. Psychiatric--normal affect. Results & Data Vital Signs (Past 12 Hours) Vital Signs Temp Pulse Pulse Pulse Resp BP BP 10/03/19 03:46 97.5 F L 63 19 118/73 10/03/19 01:20 98.2 F 59 L 60 17 155/85 H 10/03/19 01:04 60 18 162/93 H 10/02/19 22:33 59 L 16 158/85 H 10/02/19 21:50 62 19 10/02/19 21:40 62 23 10/02/19 21:30 68 19 10/02/19 21:20 59 L 19 10/02/19 21:17 65 21 10/02/19 21:14 63 18 152/94 H 10/02/19 19:52 97.9 F 63 20 153/81 H Pulse Ox 10/03/19 03:46 96 10/03/19 01:20 94 10/03/19 01:04 95 10/02/19 22:33 10/02/19 21:50 10/02/19 21:40 10/02/19 21:30 10/02/19 21:20 10/02/19 21:17 95 10/02/19 21:14 10/02/19 19:52 95 Laboratory Results Laboratory Results WBC 7.36 K/uL (4.8-10.8) 10/02/19 20:05 RBC 4.50 M/uL (4.2-5.4) 10/02/19 20:05 Hgb 13.8 g/dL (12.0-16.0) 10/02/19 20:05 Hct 41.4 % (37-47) 10/02/19 20:05 MCV 92.0 fL (80-100) 10/02/19 20:05 MCH 30.7 pg (25-34) 10/02/19 20:05 MCHC 33.3 g/dL (32-36) 10/02/19 20:05 RDW Std Deviation 44.2 fL (36.4-46.3) 10/02/19 RDW Coeff of Johnnie 13.0 % (11.5-14.5) 10/02/19: Plt Count 233 K/uL (130-400) 10/02/19 20: MPV 11.1 fL (7.4-10.4) H 10/02/19 20:05 Immature Gran % (Auto) 0.4 % 10/02/19 20:05 Neut % (Auto) 53.3 % 10/02/19 20:05 Lymph % (Auto) 35.3 % 10/02/19 20:05 [place] % (Auto) 9.6 % 10/02/19 20:05 Eos % (Auto) 0.7 % 10/02/19 20:05 Baso % (Auto) 0.7 % 10/02/19 20:05 Immature Gran # (Auto) 0.03 K/uL (0.00-0.02) H 10/02/19 20:05 Neut # (Auto) 3.92 K/uL (1.4-6.5) 10/02/19 20:05 Lymph # (Auto) 2.60 K/uL (1.2-3.4) 10/02/19 20:05 [place] # (Auto) 0.71 K/uL (0.11-0.59) H 10/02/19 20:05 Eos # (Auto) 0.05 K/uL (0-0.5) 10/02/19 20:05 Baso # (Auto) 0.05 K/uL (0-0.2) 10/02/19 20:05 Sodium 139 mmol/L (136-145) 10/02/19 20:05 Potassium 3.9 mmol/L (3.5-5.1) 10/02/19 20:05 Chloride 108 mmol/L (98-107) H 10/02/19 20:05 Carbon Dioxide 26 mmol/L (21-32) 10/02/19 20:05 Anion Gap 5.0 (3-11) 10/02/19 20:05 BUN 15 mg/dl (7-18) 10/02/19 20:05 Creatinine 1.02 mg/dl (0.6-1.2) 10/02/19 20:05 Est Cr Clr Drug Dosing 54.4 ml/min 10/02/19 20:05 Est GFR ( Amer) 64.1 10/02/19 20:05 Est GFR (Non-Af Amer) 55.3 10/02/19 20:05 BUN/Creatinine Ratio 14.6 (10-20) 10/02/19 20: Glucose 132 mg/dl (70-99) H 10/02/19 20:05 Calcium 9.3 mg/dl (8.5-10.1) 10/02/19 20:05 Total Bilirubin 0.4 mg/dl (0.2-1) 10/02/19 20:05 AST 32 U/L (15-37) 10/02/19 20:05 ALT 44 U/L (12-78) 10/02/19 20:05 Alkaline Phosphatase 88 U/L (45-117) 10/02/19 20:05 Troponin I < 0.015 ng/ml (0-0.045) 10/03/19 01:34 Total Protein 7.3 gm/dl (6.4-8.2) 10/02/19 20:05 Albumin 3.4 gm/dl (3.4-5.0) 10/02/19 20:05 Globulin 3.9 gm/dl (2.5-4.0) 10/02/19 20:05 Albumin/Globulin Ratio 0.9 (0.9-2) 10/02/19 20:05 Specimen Hemolysis 10/02/19 20:05 Urine Color Yellow 10/02/19 22:00 Urine Appearance Clear (Clear) 10/02/19 22:00 Urine pH 6.0 (4.5-7.5) 10/02/19 22:00 Ur Specific [place] 1.016 (1.000-1.030) 10/02/19 22:00 Urine Protein Negative (Negative) 10/02/19 22:00 Urine Glucose (UA) Negative (Negative) 10/02/19 22:00 Urine Ketones Negative (Negative) 10/02/19 22:00 Urine Blood Negative (Negative) 10/02/19 22:00 Urine Nitrite Negative (Negative) 10/02/19 22:00 Urine Bilirubin Negative (Negative) 10/02/19 22:00 Urine Urobilinogen Negative (Negative) 10/02/19 22:00 Ur Leukocyte Esterase Negative (Negative) 10/02/19 22:00 Lyme Disease IgG Ab Negative (Negative) 10/02/19 20:05 Lyme Disease IgM Ab Negative (Negative) 10/02/19 20:05 Diagnostic Findings [place], [place] [phone] XRay Report Patient: Keyla AGEE Date: 10/02/19 MR#: [id number]: [address] Acct ID:[id number]: Date: 1950[facility] Zip: [place] [address] Age: 69Location: ED Sex: F Room/Bed: Att Phy:Diagnosis: PRESSURE BACK OF HEAD,DIZZINESS,REFERRED BY DR Lopes Phy: Gale Mary, DOService Date: 10/02/19 Fam Phy:Interpreting Phy: Jonh Bee MD Admit Phy: Ordering Phy: Carlin Gonzalez DO cc: ~ XR chest 1V portable CLINICAL HISTORY: palpitations COMPARISON STUDY: Chest radiograph January 02, 2013. FINDINGS: Lung volumes are normal. Lungs are clear. There is no pneumothorax or pleural effusion. Mild to moderate cardiomegaly is noted. Mediastinal contours are normal. There is no evidence for pulmonary edema. IMPRESSION: No acute cardiopulmonary findings. Mild to moderate cardiomegaly. ACT 112: Negative or not required by law. Electronically signed by: Jonh Bee M.D. 10/02/2019 10:02 PM Dictated: 10/02/192200 Transcribed: 10/02/192200 Code Status & VTE Plan Code Status Full code VTE Prophylaxis Plan VTE Prophylaxis will be ordered: Yes PG Care Time/CCT Total # of Minutes Spent Total Time Spent with Patient: Total time spent is greater than 50% in coordination of care (as documented) at patient's floor/unit and/or counseling patient: Coding Level of Care Code 59316 OBS Care - Level 3 Diagnoses Neck pain M54.2 Chest pain R07.9 Paroxysmal supraventricular tachycardia I47.1 Abnormal EKG R94.31 Hypertension I10 Hyperlipidemia E78.5 Mixed incontinence urge and stress N39.46 GERD without esophagitis K21.9 Macular degeneration H35.30 Moderate obstructive sleep apnea G47.33
[2019-10-03 06:28] LABS: Basophils # (auto) 0.04 K/uL (0-0.2); Basophils % (auto) 0.8 %; Eosinophils # (auto) 0.04 K/uL (0-0.5); Eosinophils % (auto) 0.8 %; Hematocrit (blood only) 39.3 % (37-47); Immature Granulocytes # (auto) 0.01 K/uL (0.00-0.02); Immature Granulocytes % (auto) 0.2 %; Lymphocytes % (auto) 46.7 %; Mean Corpuscular Hemoglobin 30.2 pg (25-34); Mean Corpuscular Hgb Conc 33.1 g/dL (32-36); Mean Corpuscular Volume 91.2 fL (80-100); Monocytes # (auto) 0.58 K/uL (0.11-0.59); Monocytes % (auto) 11.8 %; Neutrophils # (auto) 1.96 K/uL (1.4-6.5); Neutrophils % (auto) 39.7 %; Platelet Count 195 K/uL (130-400); RDW Standard Deviation 43.6 fL (36.4-46.3); Red Blood Count 4.31 M/uL (4.2-5.4); White Blood Count 4.93 K/uL (4.8-10.8)
[2019-10-03 07:02] LABS: BUN Creatinine Ratio 15.9 (10-20); Creatinine Clr Calc Pharmacy 64.3 ml/min; Est GFR (African American) 76.6; Est GFR (Non-African American) 66.1; Potassium 3.9 mmol/L (3.5-5.1)
[2019-10-03] MEDS ORDERED: NON-FORMULARY MEDICATION (Lutein 10 MG) PO SCH (09:00)
[2019-10-03] MEDS ORDERED: PREMARIN VAG CRM 14 APPLN/30 GM TUBE PV SCH (09:00)
[2019-10-03] MEDS ORDERED: NON-FORMULARY MEDICATION (Coenzyme Q10 100 MG) PO SCH (09:00)
[2019-10-03] MEDS ORDERED: PANTOprazole 40 MG TAB PO SCH (09:00)
[2019-10-03] MEDS ORDERED: CALCIUM 600MG + VIT D 400 IU TAB PO SCH (09:00)
[2019-10-03] MEDS ORDERED: ATORVASTATIN 10 MG TAB PO SCH (09:00)
[2019-10-03] MEDS ORDERED: OMEGA-3 (PURIFIED FISH OIL) 1 GM CAP PO SCH (09:00)
[2019-10-03] MEDS ORDERED: CHOLECALCIFEROL 1,000 UNITS 25 MCG TAB PO SCH (09:00)
[2019-10-03] MEDS ORDERED: LOSARTAN POTASSIUM 25 MG TAB PO SCH (09:00)
--- NOTE | 2019-10-03 09:13 | Cardiology Consultation ---
Date of Consultation October 03, 2019 Assessment & Plan (1) Neck pain: Given the clinical description it is concerning that this might be her anginal equivalent. Luckily, her exercise stress echocardiogram was nonischemic so I do not see any cardiac component to her pain at this time. She did have a significant hypertensive blood pressure response to exercise so I will increase her losartan to 50 mg daily and she will maintain her current outpatient dose of hydrochlorothiazide. My office will call to arrange follow-up in the next 2 to 4 weeks. Okay to discharge home from a cardiac standpoint. (2) Abnormal EKG: Personally reviewed. Incorrect interpretation. Normal sinus rhythm with PVCs. (3) History of carotid stenosis: Continue aspirin and statin. Follow-up as an outpatient (4) Hypertension: As above. (5) Hyperlipidemia: LDL well controlled at 77. Continue current dose of atorvastatin. History of Present Illness Reason for Consultation: Exertional neck discomfort and abnormal EKG. Requesting Physician: Dr. Capps Attending Physician: Fili Capps, DO History of Present Illness It was my pleasure to see Mrs. Mayo in consultation today October 03, 2019. She is a very pleasant 69-year-old woman who normally follows with Dr. Canales of her cardiology practice. She presented to [facility] emergency department on 10/02/2019 at the recommendation of her PCP Bj KAY after being seen in the clinic on 10/02/2019. Clinically the patient states that for the last several months she notices with that when she walks on her daily basis she would develop neck discomfort. She states that after walking for about 5 minutes she would feel a pressure sensation in the front of her neck that was very heavy. This would then progress into a pressure sensation in the back of her head as well. She denied any associated symptoms specifically denied any associated radiation of the discomfort, shortness of breath, diaphoresis, nausea, lightheadedness, dizziness or syncope. She denies experiencing chest pain. She states that she was able to keep walking and after a few minutes the discomfort would subside. She has not had any discomfort at rest. She was seen by her PCP on 10/02/2019 and EKG was performed at that visit that was read as Mobitz 2 heart block and the patient was recommended to proceed directly to the emergency department. Upon arrival to the emergency department the patient was in normal sinus rhythm without any signs of block, no significant ischemic EKG changes on her EKG and troponin levels were normal. She was admitted to telemetry her troponins remain negative overnight and she had no discomfort overnight. Allergies Allergy/AdvReac Type Severity Reaction Status Date / Time No Known Drug Allergies Allergy Verified 10/02/19 17:26 Home Medications Home Medications Medication Instructions Recorded Confirmed Type atorvastatin 10 mg tablet 10 mg PO DAILY #30 tab 02/04/19 10/03/19 History calcium carb-Ca gluc 500 mg 1 tab PO BID tab 02/04/19 10/03/19 History calcium-magnesium ox-Mg gluc 250 mg tablet cholecalciferol (vitamin D3) 125 5,000 units PO DAILY tab 02/04/19 10/03/19 H istory mcg (5,000 unit) tablet coenzyme Q10 100 mg capsule 100 mg PO DAILY cap 02/04/19 10/03/19 History lutein 10 mg tablet 10 mg PO BID tab 02/04/19 10/03/19 History omega-3 fatty acids 1,000 mg 1,000 mg PO AMPM 02/04/19 10/03/19 History capsule omeprazole 20 mg tablet,delayed 20 mg PO DAILY 02/04/19 10/03/19 History release conjugated estrogens 0.625 mg/gram 0.3125 mg PV DAILY #30 gm 06/02/19 10/03/19 Rx vaginal cream hydrochlorothiazide 12.5 mg tablet 12.5 mg PO DAILY #90 tab 09/27/19 10/03/19 Rx losartan 25 mg tablet 25 mg PO DAILY #90 tab 09/27/19 10/03/19 Rx Patient History Medical History Abdominal pain, epigastric Arthritis (Chronic) Breast pain (Resolved) Cellulitis (Resolved) Dermatofibroma (Chronic) Diverticulosis of colon (Chronic) Elevated liver enzymes (Chronic) Endometriosis (Resolved) FH: total abdominal hysterectomy and bilateral salpingo-oophorectomy GERD without esophagitis (Chronic) History of abnormal electrocardiography (Chronic) History of actinic keratosis (Chronic) History of carotid stenosis History of contact dermatitis (Resolved) History of diverticulitis of colon (Resolved) History of dysplastic nevus (Chronic) History of ecchymosis (Chronic) History of hypertrophy of breast (Chronic) History of melanoma in situ (Chronic) History of rosacea (Chronic) History of swelling of feet (Resolved) History of uterine leiomyoma (Resolved) History of vaginal delivery X3 History of vertigo (Chronic) Hypertrophy of breast Hyponatremia (Chronic) Left shoulder pain (Resolved) Macular degeneration (Chronic) Malignant melanoma of lower limb (Chronic) Need for hepatitis C screening test (Inactive) Osteopenia (Chronic) Paroxysmal supraventricular tachycardia (Resolved) Parvovirus B19 infection (Resolved) Urinary incontinence in female (Chronic) Uterine leiomyoma Vitamin D deficiency (Chronic) Vulvar ulceration (Resolved) Surgical History H/O cardiac catheterization History of dental surgery WISDOM TEETH History of excision of lesion EXCISION OF LESION,LEGS, MALIGNANT/ 2.1 TO 3CM. History of hemorrhoidectomy History of laparoscopy History of placement of ear tubes EAR PRESSURE EQUALIZATION TUBE ONSET; SEP 2015/ LEFT EAR. History of tonsillectomy History of total abdominal hysterectomy History of tubal ligation Family History Uncle Myocardial infarction Aunt Myocardial infarction Mother Myocardial infarction Brother Myocardial infarction Coronary arteriosclerosis Father Myocardial infarction Coronary arteriosclerosis Other FH: total abdominal hysterectomy and bilateral salpingo-oophorectomy Denies family history of Ovarian cancer Prostate cancer Breast cancer Colorectal cancer Social History Preferred Language: Finnish Communication Ability: Effective Visual Impairment: No Limitations Hearing Ability: Normal Beliefs That Will Affect Care: None marital status: marital status details: THREE CHILDREN Current Living Situation: Spouse current occupational status: retired Feels Safe at Home: Yes Smoking Status: Never smoker Hx Alcohol Use: No Hx Substance Use: No Dental Care, Regularly: Yes Physical Activity Frequency: 3-4 Times per Week Seatbelt Use: always Sunscreen Use: Yes Review of Systems Review of Systems: All systems reviewed & are unremarkable except as noted in HPI & below Physical Exam Physical Exam: Physical Exam: General: Awake, alert and oriented x 3. No acute distress. HEENT: Normocephalic, atraumatic. Pupils equal, round and reactive to light and accommodation. Extraocular muscles are intact. Anicteric sclera. Moist mucous membranes. Neck: No JVD. No bruit. Cardiovascular: Regular. No S-4. Normal S-1 and S-2. No S-3. No murmurs, rubs or gallops. Pulmonary: Clear to auscultation bilaterally. No rales, rhonchi, or wheezing. Abdomen: Bowel sounds x 4, soft. No rebound, guarding or tenderness. No organomegaly. Extremities: No clubbing, cyanosis or edema. +2 pedal pulses bilaterally. Skin: Warm and dry. Results & Data ([facility]) Vital Signs (Past 12 Hours) Vital Signs Temp Pulse Pulse Pulse Resp BP BP 10/03/19 08:00 36.7 C 64 18 115/71 10/03/19 03:46 36.4 C L 63 19 118/73 10/03/19 01:20 36.8 C 59 L 60 17 155/85 H 10/03/19 01:04 60 18 162/93 H 10/02/19 22:33 59 L 16 158/85 H 10/02/19 21:50 62 19 10/02/19 21:40 62 23 10/02/19 21:30 68 19 10/02/19 21:20 59 L 19 10/02/19 21:17 65 21 10/02/19 21:14 63 18 152/94 H Pulse Ox 10/03/19 08:00 94 10/03/19 03:46 96 10/03/19 01:20 94 10/03/19 01:04 95 10/02/19 22:33 10/02/19 21:50 10/02/19 21:40 10/02/19 21:30 10/02/19 21:20 10/02/19 21:17 95 10/02/19 21:14 Laboratory Results Laboratory Results - last 24 hr 10/02/19 10/02/19 10/02/19 20:05 20:05 20:05 WBC 7.36 RBC 4.50 Hgb 13.8 Hct 41.4 MCV 92.0 MCH 30.7 MCHC 33.3 RDW Std Deviation 44.2 RDW Coeff of Johnnie 13.0 Plt Count 233 MPV 11.1 H Immature Gran % (Auto) 0.4 Neut % (Auto) 53.3 Lymph % (Auto) 35.3 Williamson % (Auto) 9.6 Eos % (Auto) 0.7 Baso % (Auto) 0.7 Immature Gran # (Auto) 0.03 H Neut # (Auto) 3.92 Lymph # (Auto) 2.60 Williamson # (Auto) 0.71 H Eos # (Auto) 0.05 Baso # (Auto) 0.05 Sodium 139 Potassium 3.9 Chloride 108 H Carbon Dioxide 26 Anion Gap 5.0 BUN 15 Creatinine 1.02 Est Cr Clr Drug Dosing 54.4 Est GFR ( Amer) 64.1 Est GFR (Non-Af Amer) 55.3 BUN/Creatinine Ratio 14.6 Glucose 132 H Calcium 9.3 Phosphorus Total Bilirubin 0.4 AST 32 ALT 44 Alkaline Phosphatase 88 Troponin I < 0.015 Total Protein 7.3 Albumin 3.4 Globulin 3.9 Albumin/Globulin Ratio 0.9 Specimen Hemolysis Urine Color Urine Appearance Urine pH Ur Specific Lynndyl Urine Protein Urine Glucose (UA) Urine Ketones Urine Blood Urine Nitrite Urine Bilirubin Urine Urobilinogen Ur Leukocyte Esterase Lyme Disease IgG Ab Lyme Disease IgM Ab Hepatitis C Ab Screen 10/02/19 10/02/19 10/03/19 20:05 22:00 01:34 WBC RBC Hgb Hct MCV MCH MCHC RDW Std Deviation RDW Coeff of Johnnie Plt Count MPV Immature Gran % (Auto) Neut % (Auto) Lymph % (Auto) Williamson % (Auto) Eos % (Auto) Baso % (Auto) Immature Gran # (Auto) Neut # (Auto) Lymph # (Auto) Williamson # (Auto) Eos # (Auto) Baso # (Auto) Sodium Potassium Chloride Carbon Dioxide Anion Gap BUN Creatinine Est Cr Clr Drug Dosing Est GFR ( Amer) Est GFR (Non-Af Amer) BUN/Creatinine Ratio Glucose Calcium Phosphorus Total Bilirubin AST ALT Alkaline Phosphatase Troponin I < 0.015 Total Protein Albumin Globulin Albumin/Globulin Ratio Specimen Hemolysis Urine Color Yellow Urine Appearance Clear Urine pH 6.0 Ur Specific Lynndyl 1.016 Urine Protein Negative Urine Glucose (UA) Negative Urine Ketones Negative Urine Blood Negative Urine Nitrite Negative Urine Bilirubin Negative Urine Urobilinogen Negative Ur Leukocyte Esterase Negative Lyme Disease IgG Ab Negative Lyme Disease IgM Ab Negative Hepatitis C Ab Screen 10/03/19 10/03/19 10/03/19 06:01 06:01 06:01 WBC 4.93 RBC 4.31 Hgb 13.0 Hct 39.3 MCV 91.2 MCH 30.2 MCHC 33.1 RDW Std Deviation 43.6 RDW Coeff of Johnnie 13.0 Plt Count 195 MPV 11.0 H Immature Gran % (Auto) 0.2 Neut % (Auto) 39.7 Lymph % (Auto) 46.7 Williamson % (Auto) 11.8 Eos % (Auto) 0.8 Baso % (Auto) 0.8 Immature Gran # (Auto) 0.01 Neut # (Auto) 1.96 Lymph # (Auto) 2.30 Williamson # (Auto) 0.58 Eos # (Auto) 0.04 Baso # (Auto) 0.04 Sodium 140 Potassium 3.9 Chloride 109 H Carbon Dioxide 30 Anion Gap 1.0 L BUN 14 Creatinine 0.88 Est Cr Clr Drug Dosing 64.3 Est GFR ( Amer) 76.6 Est GFR (Non-Af Amer) 66.1 BUN/Creatinine Ratio 15.9 Glucose 96 Calcium 9.0 Phosphorus 4.0 Total Bilirubin AST ALT Alkaline Phosphatase Troponin I Total Protein Albumin 3.0 L Globulin Albumin/Globulin Ratio Specimen Hemolysis Urine Color Urine Appearance Urine pH Ur Specific Lynndyl Urine Protein Urine Glucose (UA) Urine Ketones Urine Blood Urine Nitrite Urine Bilirubin Urine Urobilinogen Ur Leukocyte Esterase Lyme Disease IgG Ab Lyme Disease IgM Ab Hepatitis C Ab Screen Neg 10/03/19 09:26 WBC RBC Hgb Hct MCV MCH MCHC RDW Std Deviation RDW Coeff of Johnnie Plt Count MPV Immature Gran % (Auto) Neut % (Auto) Lymph % (Auto) Williamson % (Auto) Eos % (Auto) Baso % (Auto) Immature Gran # (Auto) Neut # (Auto) Lymph # (Auto) Williamson # (Auto) Eos # (Auto) Baso # (Auto) Sodium Potassium Chloride Carbon Dioxide Anion Gap BUN Creatinine Est Cr Clr Drug Dosing Est GFR ( Amer) Est GFR (Non-Af Amer) BUN/Creatinine Ratio Glucose Calcium Phosphorus Total Bilirubin AST ALT Alkaline Phosphatase Troponin I < 0.015 Total Protein Albumin Globulin Albumin/Globulin Ratio Specimen Hemolysis Urine Color Urine Appearance Urine pH Ur Specific Lynndyl Urine Protein Urine Glucose (UA) Urine Ketones Urine Blood Urine Nitrite Urine Bilirubin Urine Urobilinogen Ur Leukocyte Esterase Lyme Disease IgG Ab Lyme Disease IgM Ab Hepatitis C Ab Screen Diagnostic Findings Telemetry reviewed overnight shows no significant block patient remained in normal sinus rhythm. Exercise stress echocardiogram was negative for ischemia with a hypertensive blood pressure response to exercise. Medications Administered Current Inpatient Medications Acetaminophen (Tylenol) 650 mg PO Q4H PRN PRN Reason: Pain or Fever Stop: 11/02/19 01:26 Al Hydrox/Mg Hydrox/Simethicone (Maalox) 15 ml PO Q4H PRN PRN Reason: Dyspepsia Stop: 11/02/19 01:26 Atorvastatin Calcium (Lipitor) 10 mg PO DAILY MARY GRACE Stop: 11/02/19 08:59 Estrogens Conjugated (Premarin Vag) 1 appln PV DAILY MARY GRACE Stop: 11/02/19 08:59 Fish Oil (Hammond-3 (Purified Fish Oil)) 1 gm PO BID MARY GRACE Stop: 11/02/19 08:59 Losartan Potassium (Cozaar) 50 mg PO DAILY MARY GRACE Stop: 11/02/19 11:14 Magnesium Hydroxide (Milk Of Magnesia) 30 ml PO Q12H PRN PRN Reason: Constipation Stop: 11/02/19 01:26 Multivitamins/Minerals (Caltrate Plus) 1 tab PO BID MARY GRACE Stop: 11/02/19 08:59 Ondansetron HCl (Zofran) 4 mg IV Q6H PRN PRN Reason: Nausea Stop: 11/02/19 01:26 Pantoprazole Sodium (Protonix) 40 mg PO DAILY MARY GRACE Stop: 11/02/19 08:59 Vitamin D (Vitamin D3) 5,000 units PO DAILY MARY GRACE Stop: 11/02/19 08:59
--- NOTE | 2019-10-03 10:40 | Electrocardiogram Report ---
Test Reason : Blood Pressure : / mmHG Vent. Rate : 077 BPM Atrial Rate : 077 BPM P-R Int : 142 ms QRS Dur : 086 ms QT Int : 394 ms P-R-T Axes : 067 -31 080 degrees QTc Int : 445 ms Sinus rhythm with occasional Premature ventricular complexes Right atrial enlargement Left axis deviation Abnormal ECG When compared with ECG of 23-DEC-2012 16:36, Premature ventricular complexes are now Present Nonspecific T wave abnormality, improved in Lateral leads Confirmed by Carlin Moody ([id number]) on 10/03/2019 10:40:10 AM Referred By: REFERRED SELF Confirmed By:Carlin Moody
[2019-10-03] MEDS ORDERED: LOSARTAN POTASSIUM 50 MG TAB PO SCH (11:15)
[2019-10-03 12:08] VITALS: BP 143/87; TEMP 99; O2SAT 93
--- NOTE | 2019-10-03 12:47 | Discharge Summary ---
Date of Service October 03, 2019 Admission HPI Per Admitting Provider Chief Complaint: The patient presents to the emergency department with complaint of pressure in her neck anteriorly and pressure in the back of her head is been occurring more frequently when she is walking outside. She reports that when she gets the symptoms she continues to walk and symptoms do not appear to intensify but they also do not go away. Principal Diagnosis Exertional chest pain, normal stress echo Discharge Exam Constitutional WD/WN, vitals as above Eyes PERRL, conjunctivae normal, anicteric sclerae ENMT external ear and nose normal, oropharynx normal Neck trachea midline, no thyromegaly (some increased spasticity in bilateral paraspinal muscles) Respiratory normal respiratory effort, lungs clear to auscultation Cardiovascular RRR, no murmur, no edema Gastrointestinal (Abdomen) normal bowel sounds, soft, nontender, no hepatosplenomegaly Musculoskeletal no cyanosis or clubbing, extremities motor strength 5/5 Skin no rashes, warm and dry Neurologic patellar DTR's 2+ bilat, sensation intact and PERRL, EOMI, accommodation nl, no face palsy, no dysarthria Psychiatric A+Ox3, euthymic affect Lymphatic no cervical or axillary lymphadenopathy Discharge Data Allergies Allergy/AdvReac Type Severity Reaction Status Date / Time No Known Drug Allergies Allergy Verified 10/02/19 17:26 Consultations 10/02/19 23:06 ED Decision to Admit Stat 10/03/19 01:27 Consult Cardiology Routine Consult Case Management - Discharge Planning Routine Hospital Course (1) Neck pain: initial concerns that this represented an anginal equivalent evaluated by Dr. Marc, he was concerned by her symptoms so he ordered an exercise stress echo the exercise stress echo was without signs of ischemia, she did very well troponin was negative as well neck pain felt to be musculoskeletal patient said that she had an appt with massage therapist, encouraged her to keep this appt will try a low dose cyclobenzaprine at 5mg HS will follow up with PCP (2) Chest pain: non-cardiac patient had a normal exercise stress echo on 10/02 (3) Paroxysmal supraventricular tachycardia: no issues while here (4) Abnormal EKG: obtained EKG from the office appears to be sinus rhythm with occasional PVC's, similar to EKG done here no Mobitz type II seen here on monitor thus heart block ruled out (5) Hypertension: BP quite elevated during stress test Dr. Marc recommends increasing her Losartan to 50mg daily will continue HCTZ follow up with PCP in one week and cardiology in 2-4 weeks (6) Hyperlipidemia: Continue atorvastatin 10 mg daily (7) Mixed incontinence urge and stress: Continue conjugated estrogens vaginal cream (8) GERD without esophagitis: Continue omeprazole 20 mg p.o. daily. (9) Macular degeneration: Continue lutein (10) Moderate obstructive sleep apnea: Patient reports that she does use CPAP at home, but think she will be able do without it during this admission Total Time Total Time Spent Total Time Spent (In Minutes): 25 minutes Total Time Includes: Examination of the Patient, Discharge Planning, Medication Reconciliation and Communication With Other Providers (Dr. Marc) Discharge Plan Discharge Items Patient Disposition: Home - Self-Care Reason For Visit: NECK PRESSURE, ABNORMAL EKG Discharge Diagnosis: Negative exercise stress echo Cervical spine paraspinal muscle spasms Goals: improve blood pressure control improve neck symptoms with massage therapy, low dose muscle relaxer Activity: Resume your previous activity Non-emergency contact: Primary Care Provider and Vision Mixer Call non-emergency contact if: you have any medication questions, your symptoms worsen and your pain is not controlled Follow-up/Referrals: Gale Mary DO [Primary Care Provider] - 10/09/19 11:40 am (one week, IF THIS DOES NOT WORK, PLEASE CALL THE OFFICE AND RESCHEDULE) Richmond Canales DO [Vision Mixer] - (his office will arrange follow up in 2-4 weeks) Diet: Heart Healthy Addtl Attending Provider Instructions: Medications: - Losartan: dose increased to 50mg daily per Dr. Marc for better blood pressure control - Cyclobenzaprine: low dose muscle relaxer, try it at night for relief of muscle spasms Abnormal EKG, potential angina equivalent symptoms exercise stress echo normal, no signs of ischemia EKG from the office reviewed, it is sinus rhythm with PVC which you had here in the hospital your blood pressure was quite elevated during stress, Dr. Marc increased your Losartan his office will arrange follow up in 2-4 weeks Neck tightness, muscle spasms agree with trying massage therapy will prescribe low dose muscle relaxer to try at bedtime do not drive after taking this medication so only use at night follow up with Dr. Mary in a week Pending Studies at Discharge: No Stand-Alone Forms: [facility], Smoking Cessation Medications and DC Order Prescriptions: New losartan 50 mg Tablet 50 mg PO DAILY 30 Days Qty: 30 RF: 1 cyclobenzaprine 5 mg tablet 5 mg PO HS PRN (Reason: muscle spasm) Qty: 10 RF: 0 Continued hydrochlorothiazide 12.5 mg tablet 12.5 mg PO DAILY Qty: 90 RF: 1 atorvastatin 10 mg tablet 10 mg PO DAILY Qty: 30 RF: 0 cholecalciferol (vitamin D3) 5,000 unit tablet 5,000 units PO DAILY RF: 0 coenzyme Q10 100 mg capsule 100 mg PO DAILY RF: 0 lutein 10 mg tablet 10 mg PO BID RF: 0 Calcium Magnesium 500 mg calcium -250 mg tablet 1 tab PO BID RF: 0 omega-3 fatty acids [Fish Oil Concentrate] 1,000 mg capsule 1,000 mg PO AMPM RF: 0 omeprazole 20 mg tablet,delayed release (DR/EC) 20 mg PO DAILY RF: 0 Premarin 0.625 mg/gram cream 0.3125 mg PV DAILY Qty: 30 RF: 2 Discontinued losartan 25 mg tablet 25 mg PO DAILY Qty: 90 RF: 1 Discharge Orders: Discharge Order (Routine); Ordered 10/03/19 Ordered By: Fili Capps Admission Data Admit Date/Time: 10/03/19 00:34 Attending Provider: Fili Capps Admit Provider: Fabrizio Jalloh Primary Care Provider: Gale Mary Other Providers: Fabrizio Jalloh ; Richmond Canales Other Interventions: Discharge Summary Assessment (RN) Last Done: 10/03/19 13:15 DC Date/Time DO NOT enter until pt leaves facility: 10/03/19 14:37 Coding Level of Care Code 60279 OBS Care - Discharge Diagnoses Neck pain M54.2 Chest pain R07.9 Paroxysmal supraventricular tachycardia I47.1 Abnormal EKG R94.31 Hypertension I10 Hyperlipidemia E78.5 Mixed incontinence urge and stress N39.46 GERD without esophagitis K21.9 Macular degeneration H35.30 Moderate obstructive sleep apnea G47.33
[2019-10-03 13:17] VITALS: PULSE 60
== END 2019-10-03 14:37 | disposition home or self-care (01) ==
LOC: 2S 19:41 → ED 19:41 → SUATTDRO 10-03 00:34 → 2S 10-03 01:06